=== PATIENT | male | born 1955 | race Caucasian/White ===

== ENCOUNTER 2018-10-31 09:09 | Emergency (ER) | payer BC ==
[2018-10-31] MEDS ORDERED: Sodium Chloride 0.9% 10 ML Syringe FLUSH PRN (09:17)
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
[2018-10-31] MEDS ORDERED: Diltiazem 25 MG/5 ML SDV IVPUSH ONE (09:23)
--- NOTE | 2018-10-31 09:41 | CR ---
EXAMINATION: Chest 1V Frontal SEX: Male AGE: 63 years CLINICAL HISTORY: 63-year-old male complaining of chest pain. INTERPRETATION: No comparison films. 1. Large cardiac silhouette and generalized pulmonary venous congestion with trace of fluid in the minor fissure. BNP? EKG? 2. No current signs of alveolar edema or dependent pleural fluid accumulation. 3. No lung mass, hilar lymphadenopathy or focal lobar pneumonia. 4. No atelectasis/collapse. 5. No pneumothorax. CONCLUSION: Generalized mild congestion (see above).
[2018-10-31] MEDS ORDERED: Sodium Chloride 0.9% 1,000 ML IV ONE (09:55)
[2018-10-31] MEDS ORDERED: Diltiazem 125 MG in Sodium Chloride 0.9% 100 ML IV SCH (10:00)
[2018-10-31 10:28] LABS: CHLORIDE,CL 93 mmol/L (101-111); SODIUM,NA 128 mmol/L (135-145)
[2018-10-31 10:34] VITALS: BP 119/89
[2018-10-31] MEDS ORDERED: Heparin Sodium 5,000 Units/ML Vial IVPUSH ONE (11:04)
[2018-10-31] MEDS ORDERED: Heparin Sodium/0.45% NaCl 25,000 UNITS/500 ML BAG IV SCH (11:15)
== END 2018-10-31 11:52 ==
LOC: DL.ED 09:09
DX: I11.0 Hypertensive heart disease with heart failure (principal); I50.9 Heart failure, unspecified; I48.91 Unspecified atrial fibrillation; R79.89 Other specified abnormal findings of blood chemistry; E87.1 Hypo-osmolality and hyponatremia; E87.8 Other disorders of electrolyte and fluid balance, not elsewhere classified; E78.00 Pure hypercholesterolemia, unspecified; Z79.899 Other long term (current) drug therapy
CPT/HCPCS: 36415; 71045; 80053; 83880; 84484; 85025; 85610; 93005; 96365; 96366; 96368; 96376; 99285-25; J1644; J3490; J7030; J7050

== ENCOUNTER 2018-12-18 00:32 | Emergency (ER) | payer OTHER, BC ==
[2018-12-18 01:50] VITALS: PULSE 72
[2018-12-18 02:00] VITALS: BP 164/72
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
== END 2018-12-18 02:42 | disposition home or self-care (01) ==
LOC: DL.ED 00:32
DX: S81.831A Puncture wound without foreign body, right lower leg, initial encounter (principal); I10 Essential (primary) hypertension; E78.00 Pure hypercholesterolemia, unspecified; F17.210 Nicotine dependence, cigarettes, uncomplicated; Z79.01 Long term (current) use of anticoagulants; Z79.899 Other long term (current) drug therapy; W26.8XXA Contact with other sharp object(s), not elsewhere classified, initial encounter; Y93.01 Activity, walking, marching and hiking; Y99.0 Civilian activity done for income or pay
CPT/HCPCS: 99282

== ENCOUNTER 2020-02-13 07:36 | Day surgery (SDC) | payer BC ==
[~2020-02-13 07:36] MED LIST: Midazolam 1 MG/ML 2 ML SDV ONE; fentaNYL 100 MCG/2 ML SDV ONE
[2020-02-13] MEDS ORDERED: fentaNYL 100 MCG/2 ML SDV IV ONE ×3 (07:37→08:29)
[2020-02-13] MEDS ORDERED: Midazolam 1 MG/ML 2 ML SDV IV ONE ×3 (07:37→08:30)
[2020-02-13] MEDS ORDERED: Dextrose 5%-0.45% NaCl 1,000 ML IV SCH (08:30)
--- NOTE | 2020-02-13 10:38 | OR ---
DATE: 02/13/2020 PROCEDURES: Esophagogastroduodenoscopy and multiple pinch biopsies. INSTRUMENT USED: [id number]-[id number] Olympus video panendoscope. PREMEDICATIONS: No oral or topical anesthesia used. Fentanyl 100 mcg intravenous, Versed 2 mg intravenous, nasal O2 cannula. The procedure was done under pulse oximetry, BP recording, and panel monitor. INDICATION: The patient with iron deficiency anemia. Esophagogastroduodenoscopy is performed for detection of any active erosive lesions, Goss esophagus and/or malignancy also under consideration, H pylori status to be determined, small bowel biopsies for celiac disease if indicated, endoscopic hemostasis therapy if needed. PROCEDURE IN DETAIL: The scope was passed with ease. Adequate visualization of the esophagus was made from proximal to distal areas. No upper esophageal lesions identified. No uphill or downhill esophageal varices. No Astrid-Church tear. No evidence of erosive esophagitis by [place] criteria. No esophageal polyp or tumor mass identified. Z-line was seen at around 40 cm distal to the oral verge, configuration consistent with grade 1 by ZAP classification. No esophageal polyp or tumor mass identified. No proximal gastric varices noted. Gastric fundus examination by retroflexion showed no polypoid lesions. No gastric ulcer, malignant mass, or vascular ectasia identified. Duodenal bulb showed no ulcer. Visualized second part of the duodenum was unremarkable. Multiple pinch biopsies, 4 in number were taken from different areas of the second part of the duodenum and tissues were also obtained from the duodenal bulb at 9 and 12 o'clock positions and sent for any histopathologic evidence of celiac disease. Multiple pinch biopsies were also taken from the gastric antrum and proximal body and sent for PyloriTek test for H pylori and histopathology. No bleeding was noted from any of the visualized areas at the completion of examination. Photographs were taken of the duodenal bulb, gastric antrum, fundus, and distal esophagus. IMPRESSION: Normal study. The patient tolerated the procedure well. [facility] /[id number]
[2020-02-13 12:24] VITALS: BP 118/67; PULSE 92
== END 2020-02-13 10:45 | disposition home or self-care (01) ==
LOC: DL.ENDO 07:36
PROVIDERS: ATTEND Internal Medicine Gastroenterology
DX: D50.9 Iron deficiency anemia, unspecified (principal); I48.91 Unspecified atrial fibrillation; I11.0 Hypertensive heart disease with heart failure; I50.9 Heart failure, unspecified; E78.5 Hyperlipidemia, unspecified; I25.10 Atherosclerotic heart disease of native coronary artery without angina pectoris; E87.8 Other disorders of electrolyte and fluid balance, not elsewhere classified; Z98.890 Other specified postprocedural states
CPT/HCPCS: 43239; 87077; J2250; J3010

== ENCOUNTER 2020-02-16 06:56 | Day surgery (SDC) | payer BC ==
[2020-02-16] MEDS ORDERED: fentaNYL 100 MCG/2 ML SDV IV ONE ×4 (06:57→08:22)
[2020-02-16] MEDS ORDERED: Midazolam 1 MG/ML 2 ML SDV IV ONE ×7 (06:57→08:17)
[2020-02-16] MEDS ORDERED: Dextrose 5%-0.45% NaCl 1,000 ML IV SCH (07:15)
--- NOTE | 2020-02-16 11:56 | OR ---
DATE: 02/16/2020 PROCEDURES: Total colonoscopy, narrow-band imaging, and multiple cold snare polypectomies. INSTRUMENT USED: [id number] Olympus video colonoscope. PREMEDICATIONS: Fentanyl 125 mcg intravenous, Versed 4 mg intravenous, nasal O2 cannula. The procedure was done under pulse oximetry, BP recording, and quality assurance monitor final. INDICATION: The patient with Hemoccult positive stools and anemia requiring packed cell transfusions, on Eliquis and Plavix recently. Colonoscopic examination is done for detection of any polypoid lesions and removal, endoscopic hemostasis therapy if needed. DESCRIPTION OF PROCEDURE: Initial rectal exam was unremarkable. Rigid anoscopy showed some prolapsing rectal mucosa along with small hemorrhoids. No bleeding noted. The scope was passed with ease. Scattered diverticula were noted in the distal left colon along with deformity. The scope was passed with ease up to the ileocecal area. In the proximal sigmoid colon, multiple diminutive polyps 3 in number were noted, photograph was taken, NBI views were obtained, cold snare polypectomies were done, the tissues were retrieved and sent for histopathology. Photographs were taken of the cecum showing diminutive polyp, cold snare polypectomy was done, the tissue was retrieved and sent for histopathology. No bleeding was noted from any of the visualized areas at the commencement of the examination. Bowel preparation was found to be adequate, [place] scale 2 in all the regions, total score 6. No stricture. No vascular ectasia. No large isolated ulcerations seen. No evidence of diffuse inflammatory bowel disease in the form of friability, contact bleeding, or ulcerations. Probing the proximal sides of folds and flexures using adequate distention and clearing up the stool material, withdrawal of the scope was made. In the proximal ascending colon as well as hepatic flexure area, diminutive benign-appearing polyps were noted, cold snare polypectomies were done, the tissues were retrieved and sent for histopathology. No bleeding was noted from any of the visualized areas at the completion of examination. IMPRESSION: 1. Internal hemorrhoids. 2. Diverticulosis. 3. Multiple diminutive colonic polyps. The patient tolerated the procedure well. [facility] /[id number]
[2020-02-16 12:51] VITALS: BP 144/86; PULSE 93
== END 2020-02-16 10:55 | disposition home or self-care (01) ==
LOC: DL.ENDO 06:56
PROVIDERS: ATTEND Internal Medicine Gastroenterology
DX: D12.0 Benign neoplasm of cecum (principal); D12.2 Benign neoplasm of ascending colon; D12.3 Benign neoplasm of transverse colon; K57.30 Diverticulosis of large intestine without perforation or abscess without bleeding; K64.8 Other hemorrhoids; I48.91 Unspecified atrial fibrillation; I11.0 Hypertensive heart disease with heart failure; I50.9 Heart failure, unspecified; E78.5 Hyperlipidemia, unspecified; I25.10 Atherosclerotic heart disease of native coronary artery without angina pectoris; D50.9 Iron deficiency anemia, unspecified; Z98.890 Other specified postprocedural states
CPT/HCPCS: 45385; J2250; J3010; J7042

== ENCOUNTER 2021-05-28 15:12 | Emergency (ER) | payer BC, MEDICARE ==
[2021-05-28 15:36] VITALS: BP 129/55
[2021-05-28 15:56] VITALS: PULSE 66
[2021-05-28] MEDS ORDERED: Sodium Chloride 0.9% 10 ML Syringe FLUSH PRN (15:59)
[2021-05-28] MEDS ORDERED: Ertapenem 1 GM in Sodium Chloride 0.9% 50 ML IV ONE (16:06)
[2021-05-28 16:41] LABS: ANION GAP 12.6 mEq/L (7-13)
[2021-05-28 16:48] LABS: PTT,PARTIAL THROMBOPLSTIN TIME 32.7 SEC (22.0-34.0)
== END 2021-05-28 18:53 | disposition home or self-care (01) ==
LOC: DL.ED 15:12
DX: K68.12 Psoas muscle abscess (principal); I11.0 Hypertensive heart disease with heart failure; I50.9 Heart failure, unspecified; E78.00 Pure hypercholesterolemia, unspecified; I48.91 Unspecified atrial fibrillation; I25.10 Atherosclerotic heart disease of native coronary artery without angina pectoris; J44.9 Chronic obstructive pulmonary disease, unspecified; K21.9 Gastro-esophageal reflux disease without esophagitis; F17.210 Nicotine dependence, cigarettes, uncomplicated; Z79.899 Other long term (current) drug therapy; Z79.01 Long term (current) use of anticoagulants; Z91.19 Patient's noncompliance with other medical treatment and regimen
CPT/HCPCS: 36415; 74176; 80053; 83605; 85025; 85610; 85730; 87040; 96365; 99284; 99285; J1335; J3490

== ENCOUNTER 2021-05-30 15:03 | Emergency (ER) | payer BC, MEDICARE ==
[2021-05-30 14:54] VITALS: BP 117/85; PULSE 89
[2021-05-30] MEDS ORDERED: Heparin Sodium 5,000 Units/ML Vial IVPUSH ONE (17:22)
[2021-05-30] MEDS ORDERED: Heparin Sodium/0.45% NaCl 25,000 UNITS/500 ML BAG IV SCH (17:30)
[2021-05-30 17:49] LABS: PTT,PARTIAL THROMBOPLSTIN TIME 29.6 SEC (22.0-34.0)
[2021-05-30 17:51] LABS: ANION GAP 12.5 mEq/L (7-13)
== END 2021-05-30 18:18 ==
LOC: DL.ED 15:03
DX: I70.221 Atherosclerosis of native arteries of extremities with rest pain, right leg (principal); J44.9 Chronic obstructive pulmonary disease, unspecified; I48.91 Unspecified atrial fibrillation; I25.10 Atherosclerotic heart disease of native coronary artery without angina pectoris; I11.0 Hypertensive heart disease with heart failure; I50.9 Heart failure, unspecified; E78.00 Pure hypercholesterolemia, unspecified; Z79.82 Long term (current) use of aspirin; Z79.01 Long term (current) use of anticoagulants; Z79.899 Other long term (current) drug therapy
CPT/HCPCS: 36415; 80053; 85025; 85610; 85730; 96365; 96376; 99284-25; J1644